=== PATIENT | male | born 1985 | race African-American/Black ===

== ENCOUNTER 2019-10-03 14:30 | Inpatient (IN) | payer MEDICARE, MEDICAID ==
[~2019-10-03] VITALS: Ht 177.8 cm; Wt 72.6 kg
[2019-10-03 14:38] VITALS: BP 174/82
[2019-10-03 16:02] LABS: Basophils # (auto) 0.1 10 ^3/uL (0-0.2); Basophils % (auto) 1.1 % (0.0-2.0); Eosinophils # (auto) 0.1 10 ^3/uL (0-0.8); Eosinophils % (auto) 1.4 % (0.0-7.0); Hematocrit 47.5 % (41.0-53.0); Hemoglobin 16.1 g/dL (13.5-17.5); Lymphocytes % (auto) 22.5 % (10.0-50.0); Mean Corpuscular Hemoglobin 31.4 pg (28.0-32.0); Mean Corpuscular Hgb Conc. 33.8 g/dL (32.0-36.0); Mean Corpuscular Volume 92.9 fL (80.0-100.0); Monocytes # (auto) 0.8 10 ^3/uL (0-1.3); Monocytes % (auto) 9.4 % (0.0-12.0); Neutrophils # (auto) 5.7 10 ^3/uL (1.6-8.6); Neutrophils % (auto) 65.6 % (37.0-80.0); Nucleated Red Blood Cells % 0.1 %; Platelet Count (auto) 162 10^3/uL (140-450); Red Blood Cells 5.12 10^6/uL (4.5-5.90); Red Cell Distribution Width 13.3 % (11.8-14.3); White Blood Cell 8.7 10^3/uL (4.4-10.8)
[2019-10-03 16:15] LABS: Albumin 3.5 g/dL (3.4-5.0); BUN/Creatinine Ratio 9.2; Calcium 9.1 mg/dL (8.5-10.1)
[2019-10-03 16:18] LABS: Bilirubin, Total 0.8 mg/dL (0.2-1.0); Total Protein 7.5 g/dL (6.4-8.2)
[2019-10-03 16:19] LABS: Potassium 2.6 mmol/L (3.5-5.1)
[2019-10-03] MEDS ORDERED: POTASSIUM EFFERVESENT TAB 25 MEQ PO ONE (16:30)
[2019-10-03] MEDS ORDERED: POTASSIUM CHL 20MEQ/100ML 100 ML IV SCH (16:30)
[2019-10-03] MEDS ORDERED: ASPirin 81 mg TAB PO ONE (18:15)
[2019-10-03] MEDS ORDERED: ENOXAPARIN SOD 80 MG/0.8ML SYRINGE SC ONE (18:15)
[2019-10-03] MEDS ORDERED: POTASSIUM CHL 20 Meq TABLET PO ONE ×2 (19:15→21:00)
[2019-10-03] MEDS ORDERED: HYDROcodone-ACET 5/325MG TAB PO PRN (19:30)
[2019-10-03] MEDS ORDERED: MORPHINE SULF INJ 2 MG/ML SYRINGE 1ML IV PRN (19:30)
[2019-10-03] MEDS ORDERED: NITROGLYCERIN 0.4 MG SL TAB SL PRN (19:30)
[2019-10-03] MEDS ORDERED: ONDANSETRON HCL 4 MG/2 ML VIAL IV PRN (19:30)
[2019-10-03] MEDS ORDERED: PANTOPRAZOLE 40 MG TAB PO SCH (22:00)
== END 2019-10-03 21:47 | disposition left against medical advice (07) | DRG 392 ==
LOC: EDBD 14:30 → ER 14:30 → TELE 14:31
PROVIDERS: ADMIT Specialist; ATTEND Specialist
DX: R10.9 Unspecified abdominal pain (principal); N17.9 Acute kidney failure, unspecified; E11.9 Type 2 diabetes mellitus without complications; E87.6 Hypokalemia; I11.0 Hypertensive heart disease with heart failure; I50.9 Heart failure, unspecified; M10.9 Gout, unspecified; Z83.3 Family history of diabetes mellitus; V89.2XXA Person injured in unspecified motor-vehicle accident, traffic, initial encounter; Y92.410 Unspecified street and highway as the place of occurrence of the external cause; R79.89 Other specified abnormal findings of blood chemistry
CPT/HCPCS: 36415; 70450; 71250; 74176; 80053; 84484; 85025; 93005; 99291; G0378